=== PATIENT | male | born 1950 | race Caucasian/White ===

== ENCOUNTER 2020-10-26 00:44 | Day surgery (SDC) | payer MEDICARE, SELFPAY ==
[2020-10-10 14:24] VITALS: BMI 28.8
[2020-10-26 10:55] VITALS: BP 156/80; PULSE 90; RESP 18; TEMP 36.2; O2SAT 100; BMI 29.6
[2020-10-26] MEDS: LACTATED RINGERS 1,000 ML 150 ML IV CONT (11:15)
--- NOTE | 2020-10-26 11:30 | P.CONGI_ITS ---
Assessment and Plan Assessment and plan (1) History of colon polyps: Code(s): Z86.010 - Personal history of colonic polyps Status: Acute Assessment and Plan: Patient has a prior history of colon polyps most recently 2016. Plan is for surveillance colonoscopy now and at intervals in the future. (2) Family history of colonic polyps: Code(s): Z83.71 - Family history of colonic polyps Status: Acute Assessment and Plan: Patient's mother has had colon polyps. Patient should therefore have follow- up colonoscopy at least every 5 years. GI Consult Note Consult date/time: 10/26/20 11:30 HPI: Diogo Orr is a 70 year old male presents for screening colonoscopy. Patient has a prior history of colon polyps in 2017. Patient's family history is significant his mother has had colon polyps. Patient states that his current weight appetite bowel movements are normal. He denies any abdominal pain. He has had no bleeding. He presents today for neoplasia screening. Review of Systems Review of Systems: All systems reviewed & are unremarkable except as noted in HPI and below PMFSH Social History Social History Smoking packs per day: 1 Smoking cigarettes per day: 20.0 Years smoked: 45 Smoking pack-years: 45.00 Smoking status: Former smoker Tobacco type: cigarettes Alcohol intake: current Drinks per week: 10 Alcohol use details: BEER Substance use: never Substance use type: does not use Living arrangements: with family Spiritual care concerns: No Meds Home Medications and Allergies Home Medications Medication Instructions Recorded Confirmed Type irbesartan 150 mg PO DAILY 10/10/20 10/26/20 History simvastatin 20 mg PO DAILY 10/10/20 10/26/20 History warfarin 5 mg PO DAILY 10/10/20 10/26/20 History Allergies Allergy/AdvReac Type Severity Reaction Status Date / Time No Known Allergies Allergy Verified 10/26/20 11:11 Vital Signs Vital Signs - 24 hr 10/26/20 10:55 Temperature 97.2 F L Pulse Rate 90 Respiratory Rate 18 Blood Pressure 156/80 H Pulse Oximetry 100 Exam Narrative: Physical exam reveals patient be alert. Vital signs are stable. HEENT exam is unremarkable. Patient is anicteric. Lungs are clear to auscultation and percussion. Heart is without murmur or extra sounds. Abdom inal exam bowel sounds are present soft nontender with no organomegaly. Digital external rectal exam is normal.
--- NOTE | 2020-10-26 11:32 | WPDANESEPPF ---
Anes - Initial Pre Proc Eval Procedure: Operation Date: 10/26/20 12:00 Proposed Procedures p Screening Colonoscopy - Beto Gaspar MD Date/Time: 10/26/20 11:32 Surgeon: Beto Gaspar MD Pre Op Diagnosis: hx of colon polyps Patient Data Age: 70 Gender: M Height: 1.73 m Weight: 88.4 kg Last Vital Signs Temp 97.2 F L 10/26/20 10:55 Pulse 90 10/26/20 10:55 Resp 18 10/26/20 10:55 BP 156/80 H 10/26/20 10:55 Pulse Ox 100 10/26/20 10:55 Allergies Allergy/AdvReac Type Severity Reaction Status Date / Time No Known Allergies Allergy Verified 10/26/20 11:11 Home Medications Medication Instructions Recorded Confirmed Type irbesartan 150 mg PO DAILY 10/10/20 10/26/20 History simvastatin 20 mg PO DAILY 10/10/20 10/26/20 History warfarin 5 mg PO DAILY 10/10/20 10/26/20 History Laboratory Tests 10/26/20 11:08 PT Pending INR Pending Patient hx anesthesia problems: none Family hx anesthesia problems: none PMFSH Social History Social History Smoking packs per day: 1 Smoking cigarettes per day: 20.0 Years smoked: 45 Smoking pack-years: 45.00 Smoking status: Former smoker Tobacco type: cigarettes Alcohol intake: current Drinks per week: 10 Alcohol use details: BEER Substance use: never Substance use type: does not use Living arrangements: with family Spiritual care concerns: No Anes - Eval Final PreProcedure Day of Procedure 10/26/20 11:32 Patient weight: obese Heart: regular rate and rhythm Lungs: clear to auscultation Airway: Mallampati scale class II Neurological: alert and oriented Last oral intake: >/= 8 hours ASA classification: III Emergent: no Anesthesia type and monitoring: general GIVS and standard monitoring Informed Consent: The patient's anesthetic plan and its attendant risks and benefits were discussed with the patient/family/POA. Questions were solicited and answers provided to the satisfaction of the patient/family/POA.
[2020-10-26 11:33] LABS: INR 1.1; Prothrombin Time 13.6 Seconds (11.1-14.7)
[2020-10-26 11:55] VITALS: BP 117/77; PULSE 79; RESP 19; O2SAT 100
[2020-10-26 12:05] VITALS: BP 116/82; PULSE 79; RESP 19; O2SAT 98
[2020-10-26 12:15] VITALS: BP 116/79; PULSE 73; RESP 18; O2SAT 98
== END 2020-10-26 12:30 | disposition home or self-care (01) ==
PROVIDERS: PCP Internal Medicine; Visit Provider Internal Medicine Gastroenterology
PROC: 0DJD8ZZ Inspection of Lower Intestinal Tract, Via Natural or Artificial Opening Endoscopic (ICD-10-PCS; CPT 45378; principal; 2020-10-26 12:00)
DX: Z12.11 Encounter for screening for malignant neoplasm of colon (principal); Z86.010 Personal history of colon polyps; K57.30 Diverticulosis of large intestine without perforation or abscess without bleeding; Z87.891 Personal history of nicotine dependence; E66.9 Obesity, unspecified; Z68.29 Body mass index [BMI] 29.0-29.9, adult
CPT/HCPCS: G0105; 36415; 85610; J2704; J7120